=== PATIENT | male | born 1965 | race Two or more races ===

== ENCOUNTER 2018-09-02 07:28 | Emergency (ER) | payer OTHER ==
[~2018-09-02] VITALS: Ht 175.3 cm; Wt 81.8 kg
--- NOTE | 2018-09-02 07:38 | NUR ---
Pt ambulatees with steady gait and balance to room from triage. NADN. No obvious defecits observed.
[2018-09-02] MEDS ORDERED: HYDROcodone/APAP 5/325 TABLET PO ONE (08:00)
--- NOTE | 2018-09-02 08:12 | NUR ---
Pt requesting time to "contact some one for a ride" prior to taking pain medications.
--- NOTE | 2018-09-02 08:19 | NUR ---
Pt transported on gurney to imaging.
[2018-09-02] MEDS ORDERED: HYDROcodone/APAP 5/325 TABLET ONE (08:25)
--- NOTE | 2018-09-02 08:49 | NUR ---
Pt returned to room on gurney. Pt states he found a "ride home." Provided pt medications per request and per [facility]. Pt apprecaitive. Pt on spo2% and NIBP. NADN. No other needs expressed at this time. Ice pack provided. Call light within reach.
--- NOTE | 2018-09-02 09:51 | NUR ---
Patient given discharge instructions and they have confirmed that they understand the instructions. Patient ambulatory with steady gait. Pt states he has a friend who will be picking him up and that he will not be driving. PT d/c with prescriptions, workman's comp paperwork, d/c paperwork, and all personal belongings.
[2018-09-02 09:52] VITALS: BP 132/71
== END 2018-09-02 10:05 | disposition home or self-care (01) ==
LOC: ED 09:50
DX: S02.2XXA Fracture of nasal bones, initial encounter for closed fracture (principal); I10 Essential (primary) hypertension; E11.9 Type 2 diabetes mellitus without complications; Z79.899 Other long term (current) drug therapy; Z79.84 Long term (current) use of oral hypoglycemic drugs; Y08.89XA Assault by other specified means, initial encounter; Y93.89 Activity, other specified; Y92.89 Other specified places as the place of occurrence of the external cause; Y99.8 Other external cause status
CPT/HCPCS: 70486; 99284